=== PATIENT | male | born 1955 | race Two or more races ===

== ENCOUNTER 2016-11-14 07:29 | Emergency (ER) | payer OTHER ==
[2016-11-14] MEDS ORDERED: Ondansetron 4 MG/2 ML SDV IVPUSH ONE (07:56)
[2016-11-14] MEDS ORDERED: Sodium Chloride 0.9% 1,000 ML IV ONE (07:56)
--- NOTE | 2016-11-14 08:27 | EDM.PDOC ---
ED HPI GI/ABDOMINAL - General Chief Complaint: Gastrointestinal Problem Stated Complaint: vomiting blood this am with nausea and some RLQ pain after vomiting Time Seen by Provider: 11/14/16 08:00 Source of Information: Reports: Patient, Family History Limitations: Reports: No limitations - History of Present Illness INITIAL COMMENTS - FREE TEXT/NARRATIVE: pt about 6am vomiting kanchan chunks og bright red blood x 2 with dark blood BM yesterday sharp right abd pain after for a little bit has had this type episode before about 1 month ago NO repetitive retching dizzy passing out light headedness CP SOB has HX liver failure and cirrhosis x yrs paracentisis 3wks ago with varicies 3months ago Symptom Onset Date: 11/14/16 Symptom Onset Time: 06:00 Timing/Duration: Reports: Minutes: Location: other (ruq [id number]) Quality: Reports: ache, cramping Severity: mild Improves with: Denies: vomiting Worsens with: Reports: vomiting Context: Reports: other Associated Symptoms: Reports: bloody stools, nausea/vomiting. Denies: chest pain, back pain, testicular pain, constipation, diarrhea, fever/chills, loss of appetite - Related Data Allergies/ADRs: Allergies Allergy/AdvReac Type Severity Reaction Status Date / Time Penicillins Allergy Rash Verified 11/14/16 08:33 Home Meds: Home Meds Ciprofloxacin HCl [Ciprofloxacin HCl] 500 mg PO BID 11/14/16 [History] Furosemide [Furosemide] 40 mg PO DAILY 11/14/16 [History] Spironolactone [Aldactone] 100 mg PO DAILY 11/14/16 [History] Spironolactone [Spironolactone] 25 mg PO DAILY 11/14/16 [History] metFORMIN [Glucophage] 1,000 mg PO BID 11/14/16 [History] Past Medical History Cardiovascular History: Denies: Afib, Aneurysm, Angina, Arrhythmia, Bypass, CAD Respiratory History: Denies: Asthma, Bronchitis, recurrent, COPD, PE, SOB Gastrointestinal History: Reports: Cirrhosis, Jaundice Genitourinary History: Denies: Acute renal failure, Diabetic nephropathy, Neurogenic bladder, STD, UTI, recurrent Musculoskeletal History: Denies: Connective tissue disease Neurological History: Denies: Headaches, chronic, Neuropathy, peripheral, Vertigo Endocrine/Metabolic History: Reports: Diabetes, type II Hematologic History: Reports: Anemia, Blood transfusion(s) Oncologic (Cancer) History: Reports: Other (see below) (no CA HX). Denies: Non- Hodgkin's Lymphoma - Past Surgical History Head Surgeries/Procedures: Reports: None HEENT Surgical History: Reports: None Cardiovascular Surgical History: Reports: None Respiratory Surgical History: Reports: None GI Surgical History: Reports: Abdominal paracentesis, Colonoscopy, Other (see below) (ESO Varicies banding) Neurological Surgical History: Reports: None (colon egd 1yr ago) Musculoskeletal Surgical History: Reports: None Social & Family History - Tobacco Use Second Hand Smoke Exposure: No - Alcohol Use Days Per Week of Alcohol Use: 7 Number of Drinks Per Day: 7 Total Drinks Per Week: 49 - Recreational Drug Use Recreational Drug Use: No ED ROS GENERAL - Review of Systems Review Of Systems: See Below Constitutional: Denies: fever, chills, malaise, weakness HEENT: Reports: No symptoms Respiratory: Reports: No Symptoms Cardiovascular: Reports: No symptoms. Denies: Chest pain, Blood pressure problem, Dyspnea on exertion, Edema GI/Abdominal: Reports: Bloody stool, Hematemesis, Nausea, Vomiting Musculoskeletal: Reports: no symptoms Skin: Reports: no symptoms Neurological: Reports: No Symptoms Psychiatric: Reports: No symptoms Hematologic/Lymphatic: Reports: anemia, easy bleeding Immunologic: Reports: no symptoms ED EXAM, GI/ABD - Physical Exam Exam: See Below Exam Limited By: No limitations General Appearance: alert, WD/WN, no apparent distress Eyes: bilateral: normal appearance (jaundic ) Ears: normal external exam Nose: normal inspection. No: no blood Head: atraumatic, normocephalic Neck: normal inspection, supple, non-tender, full range of motion Respiratory/Chest: no respiratory distress, lungs clear, normal breath sounds, no accessory muscle use, chest non-tender Cardiovascular: normal peripheral pulses, regular rate, rhythm, no edema, no gallop, no JVD, no rub GI/Abdominal: normal bowel sounds, soft, tenderness, hepatomegaly, other (mild right upper lower ttp neg peritoneal heel slap no rash noted ). No: non tender , no organomegaly, no distention, no abnormal bruit, no mass, hyperactive bowel sounds Back Exam: No: CVA tenderness (L), CVA tenderness (R) Extremities: normal inspection, normal range of motion, non-tender, no pedal edema Neurological: alert, oriented, CN II-XII intact Psychiatric: normal affect, normal mood Skin Exam: Warm, Dry, No rash. No: Normal color, Jaundice EKG INTERPRETATION EKG Date: 11/14/16 Course - Vital Signs Text/Narrative:: ekg labs will contact GI in [place] rechecked pt VS after 500ml IVF 101/[address] RAJAN send through ER spoke with DR [facility] will accept 0920 Last Recorded V/S: Last Vital Signs Temp 35.3 C 11/14/16 07:35 Pulse 78 11/14/16 09:42 Resp 16 11/14/16 09:42 BP 93/55 L 11/14/16 09:42 Pulse Ox 96 11/14/16 09:42 - Orders/Labs/Meds Orders: Active Orders 24 hr Category Date Time Status EKG 12 Lead [EKG Documentation Completion] [RC] STAT Care 11/14/16 07:58 Active AMMONIA [REF] Stat Lab 11/14/16 08:13 Received Labs: Laboratory Tests 11/14/16 11/14/16 11/14/16 Range/Units 08:13 08:13 08:13 WBC 7.7 (4.0-10.0) x10^3/uL RBC 2.14 L (4.5-6.0) x10^6/uL Hgb 6.8 L* (14.0-18.0) g/dL Hct 21.0 L (40.0-52.0) % MCV 98.1 H (78.0-93.0) fL MCH 31.8 (26.0-32.0) pg MCHC 32.4 (32.0-36.0) g/dL RDW Coeff of Tereso 19.6 H (10.0-15.0) % Plt Count 53 L (130-400) x10^3/uL Neut % (Auto) 71.3 (50.0-80.0) % Lymph % (Auto) 18.4 L (25.0-50.0) % [place] % (Auto) 9.1 (2.0-11.0) % Eos % (Auto) 0.8 (0.0-4.0) % Baso % (Auto) 0.4 (0.2-1.2) % PT 18.5 H (10.0-12.8) SEC INR 1.6 L (2.0-3.5) APTT 28.1 (24.0-36.0) SEC Sodium 141 (136-145) mmol/L Potassium 4.8 (3.5-5.1) mmol/L Chloride 109 H (98-107) mmol/L Carbon Dioxide 17 L (21-32) mmol/L BUN 32 H (7-18) mg/dL Creatinine 1.8 H (0.70-1.30) mg/dL Est Cr Clr Drug Dosing TNP Estimated GFR (MDRD) 38 Glucose 192 H (74-106) mg/dL Calcium 8.2 L (8.5-10.1) mg/dL Corrected Calcium 10.12 H (8.5-10.1) mg/dL Total Bilirubin 3.2 H (0.2-1.0) mg/dL AST 70 H (15-37) U/L ALT 39 (16-63) U/L Alkaline Phosphatase 179 H (46-116) U/L Total Protein 5.4 L (6.4-8.2) g/dL Albumin 1.6 L (3.4-5.0) g/dL Globulin 3.8 Albumin/Globulin Ratio 0.42 Meds: Medications Discontinued Medications Generic Name Dose Route Start Last Admin Trade Name Freq PRN Reason Stop Dose Admin Sodium Chloride 1,000 mls @ 999 mls/hr 11/14/16 07:56 11/14/16 07:40 Normal Saline IV 11/14/16 08:56 999 mls/hr .BOLUS ONE Administration Ondansetron HCl 4 mg 11/14/16 07:56 11/14/16 08:00 Zofran IVPUSH 11/14/16 07:57 4 mg ONETIME ONE Administration Departure - Departure Time of Disposition: 09:15 Disposition: DC/Tfer to Acute Hospital 02 Condition: fair Clinical Impression: Vomiting, Bleeding gastric varices, Hematemesis/vomiting blood, Hypovolemia associated with vomiting Referrals: PCP,None [Primary Care Provider] - Forms: Interfacility Transfer EMTALA - Problem List & Annotations (1) Hematemesis/vomiting blood SNOMED Code(s): 9353381 Code(s): K92.0 - HEMATEMESIS Status: Acute (2) Hypovolemia associated with vomiting SNOMED Code(s): 17393238, 038461929 Code(s): E86.1 - HYPOVOLEMIA Status: Acute - My Orders Last 24 Hours: My Active Orders 11/14/16 07:58 EKG 12 Lead [EKG Documentation Completion] [RC] STAT 11/14/16 08:13 AMMONIA [REF] Stat - Assessment/Plan Last 24 Hours: My Active Orders 11/14/16 07:58 EKG 12 Lead [EKG Documentation Completion] [RC] STAT 11/14/16 08:13 AMMONIA [REF] Stat
[2016-11-14 08:41] LABS: CHLORIDE,CL 109 mmol/L (98-107); SODIUM,NA 141 mmol/L (136-145)
[2016-11-14 09:43] VITALS: BP 93/55
== END 2016-11-14 10:05 | disposition short-term general hospital (02) ==
LOC: VM.ED 07:29
DX: I86.4 Gastric varices (principal); K92.0 Hematemesis; E86.1 Hypovolemia; Z88.0 Allergy status to penicillin; D64.9 Anemia, unspecified; Z79.899 Other long term (current) drug therapy
CPT/HCPCS: 36415; 80053; 82140; 85025; 85610; 85730; 93005; 96361; 96374; 99285; J2405; J7030

== ENCOUNTER 2017-04-10 23:48 | Emergency (ER) | payer OTHER ==
--- NOTE | 2017-04-11 00:02 | EDM.PDOC ---
ED HPI GENERAL MEDICAL PROBLEM - General Chief Complaint: General Stated Complaint: Confused, lethagric Time Seen by Provider: 04/10/17 23:55 Source of Information: Reports: EMS, EMS Notes Reviewed, Family, RN, RN Notes Reviewed History Limitations: Reports: Altered Mental Status - History of Present Illness INITIAL COMMENTS - FREE TEXT/NARRATIVE: Patient is brought to the ED at [facility] via EMS after the were called by the patient's . According to EMS crew, the called 911 because the patient seemed to be more lethargic, confused, and combative at times. Patient is a poor historian due to current medical condition. Patient refuses to answer simple yes/no questions. Patient is able to deny any pain at this time. Patient answers "no" to any questions asked. - Related Data Allergies Allergy/AdvReac Type Severity Reaction Status Date / Time Penicillins Allergy Rash Verified 04/11/17 00:08 Home Meds: Home Meds Furosemide [Furosemide] 40 mg PO DAILY 11/14/16 [History] Lactulose [Chronulac] 45 ml PO TID 11/28/16 [History] Omeprazole Magnesium [Prilosec Otc] 20 mg PO BIDAC 11/28/16 [History] Propranolol [Inderal LA] 60 mg PO DAILY 11/28/16 [History] Rifaximin [Xifaxan] 550 mg PO BID 11/28/16 [History] Spironolactone [Aldactone] 100 mg PO DAILY 11/28/16 [History] metFORMIN HCl [Metformin HCl] 1,000 mg PO BIDMEALS 11/28/16 [History] Past Medical History Gastrointestinal History: Reports: Cirrhosis, Jaundice Endocrine/Metabolic History: Reports: Diabetes, Type II Hematologic History: Reports: Anemia, Blood Transfusion(s) Oncologic (Cancer) History: Reports: Other (See Below) - Past Surgical History GI Surgical History: Reports: Abdominal paracentesis, Colonoscopy, Other (See Below) Social & Family History - Tobacco Use Smoking Status *Q: Former Smoker Second Hand Smoke Exposure: No - Alcohol Use Days Per Week of Alcohol Use: 7 Number of Drinks Per Day: 7 Total Drinks Per Week: 49 - Recreational Drug Use Recreational Drug Use: No ED ROS GENERAL - Review of Systems Review Of Systems: ROS reveals no pertinent complaints other than HPI. ED EXAM, GENERAL - Physical Exam Exam: See Below Exam Limited By: Altered Mental Status (and Uncooperative) General Appearance: No Apparent Distress, Lethargic, Thin, Cachetic Respiratory/Chest: No Respiratory Distress, Lungs Clear, Normal Breath Sounds Cardiovascular: Normal Peripheral Pulses, Regular Rate, Rhythm GI/Abdominal: Distended, Guarding (RUQ) Neurological: Disoriented, Slow to Respond Skin Exam: Warm, Dry, Intact, Normal Color, No Rash Course - Vital Signs Last Recorded V/S: Last Vital Signs Temp 36.1 C 04/10/17 23:55 Pulse 54 L 04/10/17 23:55 Resp 20 04/10/17 23:55 BP 113/70 04/10/17 23:55 Pulse Ox 96 04/10/17 23:55 - Orders/Labs/Meds Orders: Active Orders 24 hr Category Date Time Status AMMONIA [REF] Stat Lab 04/10/17 23:55 Received Sodium Chloride 0.9% [Saline Flush] Med 04/11/17 00:23 Active 10 ml FLUSH ASDIRECTED PRN Peripheral IV Insertion Adult [OM.PC] Routine Oth 04/11/17 00:23 Ordered Medication Orders Sodium Chloride (Saline Flush) 10 ml FLUSH ASDIRECTED PRN PRN Reason: Keep Vein Open Labs: Laboratory Tests 04/11/17 04/11/17 04/11/17 Range/Units 00:22 00:22 00:22 WBC 5.0 (4.0-10.0) x10^3/uL RBC 3.93 L (4.5-6.0) x10^6/uL Hgb 10.8 L D (14.0-18.0) g/dL Hct 30.9 L (40.0-52.0) % MCV 78.6 D (78.0-93.0) fL MCH 27.5 (26.0-32.0) pg MCHC 35.0 (32.0-36.0) g/dL RDW Coeff of Tereso 23.4 H (10.0-15.0) % Plt Count 53 L (130-400) x10^3/uL Neut % (Auto) 55.9 (50.0-80.0) % Lymph % (Auto) 29.4 (25.0-50.0) % [place] % (Auto) 12.5 H (2.0-11.0) % Eos % (Auto) 1.8 (0.0-4.0) % Baso % (Auto) 0.4 (0.2-1.2) % PT (9.8-11.8) SEC INR (2.0-3.5) Sodium 130 L D (136-145) mmol/L Potassium 6.0 H (3.5-5.1) mmol/L Chloride 101 (98-107) mmol/L Carbon Dioxide 21 (21-32) mmol/L BUN 18 (7-18) mg/dL Creatinine 1.4 H (0.70-1.30) mg/dL Est Cr Clr Drug Dosing TNP Estimated GFR (MDRD) 51 Glucose 179 H (74-106) mg/dL Lactic Acid 3.0 H (0.4-2.0) mmol/L Calcium 8.6 (8.5-10.1) mg/dL Corrected Calcium 10.44 H (8.5-10.1) mg/dL Phosphorus (2.6-4.7) mg/dL Magnesium (1.8-2.4) mg/dL Total Bilirubin 2.4 H (0.2-1.0) mg/dL Direct Bilirubin 1.48 H (0.00-0.20) mg/dL AST 124 H (15-37) U/L ALT 61 (16-63) U/L Alkaline Phosphatase 287 H (46-116) U/L Lactate Dehydrogenase 308 H (85-227) U/L C-Reactive Protein 3.3 H (<=0.9) mg/dL Total Protein 8.2 (6.4-8.2) g/dL Albumin 1.7 L (3.4-5.0) g/dL Globulin 6.5 Albumin/Globulin Ratio 0.26 Amylase (25-115) U/L Lipase (73-393) U/L 04/11/17 04/11/17 Range/Units 00:22 00:22 WBC (4.0-10.0) x10^3/uL RBC (4.5-6.0) x10^6/uL Hgb (14.0-18.0) g/dL Hct (40.0-52.0) % MCV (78.0-93.0) fL MCH (26.0-32.0) pg MCHC (32.0-36.0) g/dL RDW Coeff of Tereso (10.0-15.0) % Plt Count (130-400) x10^3/uL Neut % (Auto) (50.0-80.0) % Lymph % (Auto) (25.0-50.0) % [place] % (Auto) (2.0-11.0) % Eos % (Auto) (0.0-4.0) % Baso % (Auto) (0.2-1.2) % PT 13.9 H (9.8-11.8) SEC INR 1.3 L (2.0-3.5) Sodium (136-145) mmol/L Potassium (3.5-5.1) mmol/L Chloride (98-107) mmol/L Carbon Dioxide (21-32) mmol/L BUN (7-18) mg/dL Creatinine (0.70-1.30) mg/dL Est Cr Clr Drug Dosing Estimated GFR (MDRD) Glucose (74-106) mg/dL Lactic Acid (0.4-2.0) mmol/L Calcium (8.5-10.1) mg/dL Corrected Calcium (8.5-10.1) mg/dL Phosphorus 3.5 (2.6-4.7) mg/dL Magnesium 1.7 L (1.8-2.4) mg/dL Total Bilirubin (0.2-1.0) mg/dL Direct Bilirubin (0.00-0.20) mg/dL AST (15-37) U/L ALT (16-63) U/L Alkaline Phosphatase (46-116) U/L Lactate Dehydrogenase (85-227) U/L C-Reactive Protein (<=0.9) mg/dL Total Protein (6.4-8.2) g/dL Albumin (3.4-5.0) g/dL Globulin Albumin/Globulin Ratio Amylase 103 (25-115) U/L Lipase 551 H (73-393) U/L Meds: Medications Generic Name Dose Route Start Last Admin Trade Name Freq PRN Reason Stop Dose Admin Sodium Chloride 10 ml 04/11/17 00:23 Saline Flush FLUSH ASDIRECTED PRN Keep Vein Open Departure - Departure Time of Disposition: 01:24 Disposition: DC/Tfer to Acute Hospital 02 Condition: Poor Clinical Impression: Hepatic encephalopathy Liver cirrhosis, alcoholic Qualifiers: Ascites presence: with ascites Qualified Code(s): K70.31 - Alcoholic cirrhosis of liver with ascites Hepatitis C Qualifiers: Viral hepatitis chronicity: chronic Hepatic coma status: without hepatic coma Qualified Code(s): B18.2 - Chronic viral hepatitis C Altered mental status Qualifiers: Altered mental status type: somnolence Qualified Code(s): R40.0 - Somnolence - Discharge Information Forms: Interfacility Transfer [facility] ED Communication - ED Communication Date/Time Date: 04/11/17 Time Called: 01:15 - Discussed Case With (1) Discussed Case With (1): Admitting Provider (Dr. Pelayo, [facility]) - Conversation Summary Admitting Provider Agreed to Patient's Admission: Yes Patient Aware of Amendments fo Care Plan: Yes Patient's POA/Guardian Aware of Amendments to Care Plan: Yes - Problem List Review Problem List Initiated/Reviewed/Updated: Yes - My Orders Last 24 Hours: My Active Orders 04/10/17 23:55 AMMONIA [REF] Stat 04/11/17 00:23 Sodium Chloride 0.9% [Saline Flush] 10 ml FLUSH ASDIRECTED PRN Peripheral IV Insertion Adult [OM.PC] Routine - Assessment/Plan Last 24 Hours: My Active Orders 04/10/17 23:55 AMMONIA [REF] Stat 04/11/17 00:23 Sodium Chloride 0.9% [Saline Flush] 10 ml FLUSH ASDIRECTED PRN Peripheral IV Insertion Adult [OM.PC] Routine
[2017-04-11] MEDS ORDERED: Sodium Chloride 0.9% 10 ML Syringe FLUSH PRN (00:23)
[2017-04-11 00:52] LABS: CHLORIDE,CL 101 mmol/L (98-107); SODIUM,NA 130 mmol/L (136-145)
[2017-04-11 01:48] VITALS: BP 140/65
== END 2017-04-11 02:04 | disposition short-term general hospital (02) ==
LOC: VM.ED 23:48
DX: K72.90 Hepatic failure, unspecified without coma (principal); K70.31 Alcoholic cirrhosis of liver with ascites; B18.2 Chronic viral hepatitis C; E11.9 Type 2 diabetes mellitus without complications; Z87.891 Personal history of nicotine dependence; Z88.0 Allergy status to penicillin; Z79.899 Other long term (current) drug therapy
CPT/HCPCS: 36415; 80053; 82140; 82150; 82248; 83605; 83615; 83690; 83735; 84100; 85025; 85610; 86140; 99285

== ENCOUNTER 2017-05-05 15:02 | Emergency (ER) | payer OTHER ==
[2017-05-05 16:08] VITALS: BP 143/92
--- NOTE | 2017-05-06 18:34 | ER ---
Date of Service: 05/05/2017 SUBJECTIVE: See presents to the emergency room with complaints of hypoglycemia. The patient states that he took his regular dose of 16 units of NovoLog insulin and only consumed a banana for lunch. The patient has a history of end-stage liver disease and states that his appetite has been poor. The patient's states that the patient began experiencing decreased level of consciousness and confusion. Subsequently, EMS was summoned. On their arrival, they checked the patient's blood sugar which was found to be "low," according to the EMS glucometer. IV access was established, and the patient was given 25 g of 50% dextrose in water. The patient quickly regained consciousness and was subsequently transported to this facility. Again, the patient does have a history of end-stage liver disease. He is on a liver transplant list. He states that overall, he has been feeling relatively well other than problems with appetite. He states that he recently did undergo a paracentesis for cirrhosis last week. PAST MEDICAL HISTORY: 1. End-stage liver disease. 2. History of alcoholism. 3. Type 2 diabetes mellitus. MEDICATIONS: 1. Spironolactone. 2. Rifaximin. 3. Prilosec OTC. 4. Lactulose. 5. Furosemide. 6. Lantus. 7. NovoLog. ALLERGIES: No known drug allergies. REVIEW OF SYSTEMS: General: Denies fever or chills. HEENT: No sore throat, rhinorrhea, or congestion. Respiratory: No shortness of breath. Cardiac: Denies any substernal chest pain. No jaw, arm, neck, or back pain. Gastrointestinal: Positive for cirrhosis and abdominal distention. Positive for nausea, but no vomiting. He states his appetite is poor. Genitourinary: Denies any dysuria. Musculoskeletal: No myalgias or arthralgias. Neurologic: No fainting, blackouts, or lightheadedness. states that his mental status is normal at this time. PHYSICAL EXAMINATION: General: This is a 61-year-old male patient who is in no acute distress. Vital Signs: Blood pressure is 143/92, heart rate is 91, oxygen saturation is 95% on room air, respiratory rate is 18, and temperature is 35.4. Skin: Warm, pink, and dry. Mouth: Oral mucosa is moist. Lungs: Clear to auscultation. Heart: Regular rate and rhythm. Abdomen: Soft. Distended with ascites. His liver is very enlarged. Bowel sounds are normoactive. Neurovascular: Circulation, sensation, and motor function all within normal limits in distal portions of the extremities. LABORATORY DATA: Repeat bedside glucose was performed and was found to be greater than 130. ASSESSMENT: Hypoglycemia. PLAN: The patient will be discharged. We did obtain some food from the kitchen here at the hospital for him to consume as well as some juice. He did eat the food and remained alert and oriented during his stay in the ER. The patient wished to be discharged and subsequently was sent home, to follow up with his primary care provider. He is to return to the emergency room if he develops any decreased level of consciousness, confusion, fever, chills, or other worrisome signs or symptoms. All questions were answered. MWK: 05/06/2017 18:00:28 MODL: 05/06/2017 18:27:41 /[id number]
== END 2017-05-05 16:30 | disposition home or self-care (01) ==
LOC: VM.ED 15:05
DX: E11.649 Type 2 diabetes mellitus with hypoglycemia without coma (principal); K72.90 Hepatic failure, unspecified without coma; Z79.4 Long term (current) use of insulin
CPT/HCPCS: 82962; 99285